=== PATIENT | female | born 1940 | race Caucasian/White ===

== ENCOUNTER 2016-12-03 07:40 | Day surgery (SDC) | payer MEDICARE, BC ==
[~2016-12-03 07:40] MED LIST: Buffered Lidocaine 0.9% SYRIN* 5 ML/SYR SYRINGE INTRADERM ONE; Famotidine IV* 10 MG/ML 2 ML (20 mg) IV ONE; Morphine INJ* 2 MG/ML 1 ML SYRINGE IV PRN; PROCHLORPERAZINE INJ 5 MG/ML 2 ML VIAL IV PRN; fentaNYL* 50 MCG/ML 2 ML VIAL (100 MCG VIAL) IV PRN; oxyCODONE/Acetamin 5/325 MG* TAB PO PRN
[2016-12-03] MEDS ORDERED: Famotidine IV* 10 MG/ML 2 ML (20 mg) ONE (07:57)
[2016-12-03] MEDS ORDERED: ceFAZolin 2 GM PREMIX(*) 2 GM/50 ML BAG IVPB ONE (07:57)
[2016-12-03] MEDS ORDERED: Buffered Lidocaine 0.9% SYRIN* 5 ML/SYR SYRINGE ONE (07:57)
[2016-12-03] MEDS ORDERED: KETAMINE HCL* 50 MG/ML 10 ML VIAL ONE (08:09)
[2016-12-03] MEDS ORDERED: Midazolam* 1 MG/ML 5 ML VIAL (5 MG) ONE (08:09)
[2016-12-03] MEDS ORDERED: fentaNYL* 50 MCG/ML 2 ML VIAL (100 MCG VIAL) ONE (08:09)
[2016-12-03] MEDS ORDERED: Bupivacaine 0.25% SDV* 30 ML ONE (09:15)
[2016-12-03 11:30] VITALS: BP 152/82
[2016-12-03] MEDS ORDERED: Dexamethasone IV* 4 MG/ML 1 ML (4 MG) ONE (12:02)
[2016-12-03] MEDS ORDERED: Ondansetron INJ* 2 MG/ML VIAL ONE (12:02)
[2016-12-03] MEDS ORDERED: Lidocaine 2% PF * 5 ML VIAL ONE (12:02)
[2016-12-03] MEDS ORDERED: Propofol* 10 MG/ML 20 ML BTL IV PUSH ONE (12:02)
--- NOTE | 2016-12-04 02:10 | OP ---
DATE OF OPERATION: 12/03/16 - [facility] DATE OF : 42 SURGEON: Abhishek Can MD ADVERTISING SALES ASSISTANT: JEB Renteria. An assistant media planner was needed for the entirety of the case to aid in retraction. ANESTHESIOLOGIST: Dr. Shen. ANESTHESIA: Local MAC. PRE-OP DIAGNOSES: 1. Right dorsal hand very large rheumatoid masses. 2. Right thumb metacarpophalangeal joint synovitis. 3. Extensive deformities, right hand, due to rheumatoid arthritis. POST-OP DIAGNOSES: 1. Right dorsal hand very large rheumatoid masses. 2. Right thumb metacarpophalangeal joint synovitis. 3. Extensive deformities, right hand, due to rheumatoid arthritis. OPERATIVE PROCEDURE: 1. Right hand excision extensor tendon tenosynovitis and 3rd and 4th metacarpophalangeal joint synovitis with extensor tendon realignment. 2. Excision thumb metacarpophalangeal joint synovitis. INDICATIONS: Ms. Mg is a 75-year-old female who was sent over to me by her coil machine supervisor to assist in the treatment of her disease. She has been medically controlled on Xeljanz and methotrexate. She has had history of nodules that is enlarged and gotten smaller. She has had enlarging dorsal right hand masses since last May, seven months ago. These have failed to respond to medical treatment and so her coil machine supervisor sent her over to see me. She also has extensive synovitis in the thumb MP joint. 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 There is some discomfort associated with masses. They are also very large and very noticeable. I had talked to her about surgical treatment options for her rheumatoid arthritis. Certainly, I think she would be a candidate for MP joint replacements and potentially a thumb MP joint fusion. She says that the hand is functioning well and she does not want to pursue any reconstructive surgery; however, she does want to have to see if we can get rid of some of the synovitis as it is quite prominent. I had gotten some preoperative medical recommendations from her coil machine supervisor and then we elected to proceed with surgery. She understood there is a risk that she could have worsening of extensor tendon subluxation and the function of the hand after surgery. ESTIMATED BLOOD LOSS: 5 mL. COMPLICATIONS: None. FINDINGS: Abundant synovitis protruding from the third and fourth MP joint. There is also extensive synovitis in the thumb MP joint. DESCRIPTION OF PROCEDURE: Viviane was seen in the preoperative holding area. The correct side, site, and procedure were confirmed. We came back to the operating room where she had some sedating medicine and then I infiltrated 8 mL of 0.25% plain Marcaine into the operative area. We then prepped and draped the arm in the usual fashion. We then had a formal time-out. The arm was exsanguinated with the Esmarch and the tourniquet inflated to 250 mmHg. I began by making a curvilinear transverse incision over the masses, over the dorsal aspect of the MP joints. Dissection was carried down and full thickness flaps were raised off of the synovitis. The care was taken to preserve the traversing sensory nerves as well as veins. Ultimately, I developed a correct plane between the extensor tendons and the synovitis. The margins of the synovitis were then freed up. I began more ulnarly and was able to free up the margins of the very large amount of synovium. The extensor tendons were preserved as was the extensor yu dorsally over the MP joint. The synovitis was excised cleanly off of the MP joint. The rongeur was used to clean up any remaining disease. This was then handed off as a specimen. I then performed a similar excision of the synovitis off of the third MP joint taking care to preserve the tendon. The tendon was actually quite attenuated over the synovitis and really adherent to it. Great care was taken to free it up and preserve the tendon going out to the middle finger. I excised the synovitis off the MP joint and again used the rongeur to clean up any remaining synovitis. The joint surfaces were obviously quite diseased. I irrigated out the wound. I then took some 5-0 Prolene suture and I imbricated the radial sagittal band first on the fourth and then on the third finger. This was done in [id number] fashion to close down the redundant and attenuated tissue of the radial sagittal band. Once I had the extensor tendons nicely positioned dorsally over the MP joints, I took the fingers to a flexion- extension motion and the tendon stayed centered over the dorsum of the joints. I therefore irrigated out the wound and the skin was closed with 4-0 nylon suture. I then turned my attention to the dorsum of the thumb MP joint where a longitudinal incision was made. The EPL tendon was identified. I went ahead and split the tendon over the MP joint. I encountered abundant synovitis. This was all excised with the scissors and then with the rongeur. Again, there was significant degenerative disease present. I went ahead and irrigated out the wound. I used 5- 0 Prolene to close down the extensor mechanism. The wound was then irrigated and the skin was closed with 4-0 nylon suture. I went ahead and placed a little bit more Marcaine in the operative area. The wounds were dressed with Xeroform, 4x4s, sterile Webril, and then a volar plaster splint was placed holding all the MP joint in extension. Tourniquet was deflated. Fingers pinked up immediately. She was then taken to recovery room in stable condition. [id number]/[facility] #: [id number] HA
== END 2016-12-03 11:45 | disposition home or self-care (01) ==
LOC: OREAST 07:40
PROVIDERS: ATTEND Orthopaedic Surgery Hand Surgery
DX: M06.341 Rheumatoid nodule, right hand (principal); M06.841 Other specified rheumatoid arthritis, right hand; I10 Essential (primary) hypertension; F17.200 Nicotine dependence, unspecified, uncomplicated
CPT/HCPCS: 88305; J0690; J1100; J2250; J2405; J2704; J3010

== ENCOUNTER 2017-02-08 10:26 | Day surgery (SDC) | payer MEDICARE, BC ==
[~2017-02-08 10:26] MED LIST changes: -Famotidine IV* 10 MG/ML 2 ML (20 mg) IV ONE; -Morphine INJ* 2 MG/ML 1 ML SYRINGE IV PRN; -PROCHLORPERAZINE INJ 5 MG/ML 2 ML VIAL IV PRN; -fentaNYL* 50 MCG/ML 2 ML VIAL (100 MCG VIAL) IV PRN; -oxyCODONE/Acetamin 5/325 MG* TAB PO PRN
[2017-02-08] MEDS ORDERED: ceFAZolin 2 GM PREMIX (*) 50 ML BAG (BBraun bag) IVPB ONE (10:50)
[2017-02-08] MEDS ORDERED: Buffered Lidocaine 0.9% SYRIN* 5 ML/SYR SYRINGE ONE (10:50)
[2017-02-08] MEDS ORDERED: Lidocaine 1% INJ* 10 MG/ML 30 ML SDV ONE (11:16)
[2017-02-08] MEDS ORDERED: Bupivacaine 0.25% SDV* 30 ML ONE (11:16)
[2017-02-08] MEDS ORDERED: Dexamethasone IV* 4 MG/ML 1 ML (4 MG) ONE (11:16)
[2017-02-08] MEDS ORDERED: Midazolam* 1 MG/ML 2 ML VIAL (2 MG) ONE (12:07)
[2017-02-08] MEDS ORDERED: fentaNYL* 50 MCG/ML 2 ML VIAL (100 MCG VIAL) ONE (12:07)
[2017-02-08] MEDS ORDERED: Propofol* 10 MG/ML 20 ML BTL IV PUSH ONE (12:52)
[2017-02-08 14:50] VITALS: BP 137/76
--- NOTE | 2017-02-08 15:00 | RAD ---
HISTORY: Status post metatarsal resection COMPARISONS: None relevant available at the time of dictation VIEWS: 2, Frontal and lateral views of the left foot FINDINGS: BONE DENSITY: There is diffuse osteopenia. BONES: The patient is status post resection of the distal second metatarsal. A percutaneous fixation wires noted of the distal second ray. . JOINTS: There is osteoarthritis of the first, third, fourth, and fifth MTP joints ALIGNMENT: There is no dislocation. SOFT TISSUES: There is post surgical change to the soft tissues OTHER FINDINGS: None. IMPRESSION: 1. OSTEOPENIA. 2. POSTSURGICAL CHANGE. 3. OSTEOARTHRITIS
--- NOTE | 2017-02-08 15:30 | RAD ---
CPT II Codes: 6045F INDICATION: Left second metatarsal resection TECHNIQUE: Intraoperative fluoroscopy was provided during left second toe metatarsal arthrodesis. FINDINGS: 7 spot films depict multiple images of the distally resected second metatarsal with an intramedullary pain spanning the medullary cavity of the remaining second metatarsal and the visualized proximal phalanx. Fluoroscopy time: 6.9 seconds IMPRESSION: As above.
--- NOTE | 2017-02-09 07:21 | OP ---
DATE OF OPERATION: 02/08/17 [facility] DATE OF : 42 SURGEON: Lg Garcia DPM ANESTHESIOLOGIST: Harinder Lopez MD ANESTHESIA: MAC local. PRE-OP DIAGNOSES: Right second metatarsophalangeal joint rheumatoid arthritis and left second toe hammertoe. POST-OP DIAGNOSES: Right second metatarsophalangeal joint rheumatoid arthritis and left second toe hammertoe. OPERATIVE PROCEDURE: Left second metatarsal head resection and left second digit arthrodesis. ESTIMATED BLOOD LOSS: Less than 10 cc. IV FLUIDS: LR 1000 cc. DRAINS: None. SPECIMENS: Head of the left second metatarsal, base of the left middle phalanx second toe and head of the proximal phalanx, left second toe. DESCRIPTION OF PROCEDURE: The patient was taken to the operating room and was placed in the supine position. Time-out was called and OR team agreed. The left foot was then blocked with 5 cc of 1% lidocaine plain in a Cabello block fashion at the base of the second metatarsal. The foot was then prepped and draped in a sterile manner. The left foot was then exsanguinated with Esmarch bandage and the cuff was then inflated to 250 mmHg. Attention was then paid to the left second metatarsophalangeal joint in the left second toe. There appeared to be a dorsal dislocation of the joint at the level of the second MPJ. The second toe is dorsally displaced as well as medially and is overlapping with the hallux. I made an incision over the joint to the toe, which was followed by sharp and blunt dissection from the skin, dermis, subcutaneous tissue and down to deep fascia and capsule. Once I was able to identify the second metatarso-phalangeal joint, I incised the capsule, cut to the joint, resected the second metatarsal head and was able to get some correction. The second set correction was performed after following removal of the head of the proximal phalanx and the base of the middle phalanx. I then retrograded the K-wire. Once I was able to get the correction with the toe in a straight manner no longer overlapping the hallux, the procedure was deemed completed. The wound was irrigated with sterile normal saline. The wound was then closed in a layered anatomical fashion. I then proceeded to inspect the reduction with fluoroscopy. This completed the procedure. The site was then injected with 5 cc of Marcaine plain as well as 8 mg of dexamethasone phosphate. The K-wire was then tucked safely underneath the dressing. The patient tolerated the procedure and anesthesia well and was taken to Recovery in stable condition. [id number]/[facility] #: [id number] MTDD
== END 2017-02-08 14:55 | disposition home or self-care (01) ==
LOC: OR 10:26
PROVIDERS: ATTEND Podiatrist
DX: M06.872 Other specified rheumatoid arthritis, left ankle and foot (principal); M20.42 Other hammer toe(s) (acquired), left foot; I10 Essential (primary) hypertension; F17.210 Nicotine dependence, cigarettes, uncomplicated
CPT/HCPCS: 76000; C1776; J0690; J1100; J2001; J2250; J2704; J3010

== ENCOUNTER 2019-01-26 08:09 | Day surgery (SDC) | payer MEDICARE, OTHER ==
[~2019-01-26 08:09] MED LIST changes: +Acetaminophen TAB* 325 MG PO PRN; -Buffered Lidocaine 0.9% SYRIN* 5 ML/SYR SYRINGE INTRADERM ONE
[2019-01-26] MEDS ORDERED: Neomycin/Polymy/Dex OPHTH.OIN* 3.5 GM ONE (08:15)
[2019-01-26] MEDS ORDERED: Lidocaine 1% MPF ** 5 ML VIAL ONE (08:15)
[2019-01-26] MEDS ORDERED: acetaZOLAMIDE TAB* 250 MG ONE (08:15)
[2019-01-26] MEDS ORDERED: Cyclopentolate 1% OPTH.SOL* 2 ML BTL ONE (08:15)
[2019-01-26] MEDS ORDERED: Tropicamide 1% OPTH.SOL* BTL ONE (08:15)
[2019-01-26] MEDS ORDERED: Povidone Iodine 5% OPTH* 30 ML BTL ONE (08:15)
[2019-01-26] MEDS ORDERED: Tetracaine 0.5% OPTH.SOL 4 ML* 1 DROP BTL ONE (08:15)
[2019-01-26] MEDS ORDERED: Ketorolac 0.5% OPHTH (NF) 0.5 % 5 ML BTL ONE (08:15)
[2019-01-26] MEDS ORDERED: Phenylephrine OPHTH SOL 2.5%* 2 ML ONE (08:15)
[2019-01-26] MEDS ORDERED: Midazolam* 1 MG/ML 2 ML VIAL (2 MG) ONE ×2 (09:31→09:42)
[2019-01-26 10:35] VITALS: BP 116/64
--- NOTE | 2019-01-26 11:34 | OP ---
DATE OF OPERATION: 01/26/19 - [facility] DATE OF : 42 SURGEON: Linus Sarkar MD ANESTHESIA: Monitored anesthesia care. PREOPERATIVE DIAGNOSIS: Cataract, right eye. POSTOPERATIVE DIAGNOSIS: Cataract, right eye. OPERATIVE PROCEDURE: Extracapsular cataract extraction of the right eye with intraocular lens implant. IMPLANT: SN60WF 20.0 diopter lens to the right eye. COMPLICATIONS: None. DESCRIPTION OF PROCEDURE: The patient was given phenylephrine 2.5% and cyclopentolate 1% eye drops to the operative eye in the preoperative area. The patient was taken to the operating room where a time-out was taken to identify the correct patient, site, and side of surgery. The patient's right eye was prepped and draped in the usual sterile fashion with 5% Betadine. A second time- out was taken to verify the correct patient, side, and site of surgery, as well as the correct lens implant. A lid speculum was placed to the right eye. A 1mm paracentesis blade was used to make a clear corneal incision. Preservative-free 1% lidocaine was injected into the anterior chamber. DisCoVisc was then injected into the anterior chamber. A 2.75 mm keratome blade was used to make a triplanar incision. A cystotome initiated a capsulorrhexis, which was completed with Utrata forceps in a continuous and curvilinear manner. Hydrodissection of the lens was performed with BSS on a cannula. The lens could be spun in a capsular bag. The phacoemulsification handpiece was used with a divide-and- conquer technique to remove the nucleus. The I/A handpiece then removed the residual cortical lens material. DisCoVisc was injected to inflate the capsular bag. The planned SN60WF 20.0 diopter lens was injected into the capsular bag. The residual DisCoVisc was removed from the eye with the I/A handpiece. The corneal incisions were hydrated and no leaks occurred at physiologic pressure around 20 mmHg per palpation. The lid speculum was removed and drapes were removed. Maxitrol ointment was placed to the surface of the operative eye. An adhesive patch and shield was then placed on the operative eye. The patient was taken to the postoperative area in stable condition. [id number]/[facility] #: [id number] [facility]
== END 2019-01-26 10:22 | disposition home or self-care (01) ==
LOC: OREAST 08:09
PROVIDERS: ATTEND Student in an Organized Health Care Education/Training Program
DX: H25.11 Age-related nuclear cataract, right eye (principal); H35.3212 Exudative age-related macular degeneration, right eye, with inactive choroidal neovascularization; I10 Essential (primary) hypertension; M06.9 Rheumatoid arthritis, unspecified; E78.00 Pure hypercholesterolemia, unspecified; F17.210 Nicotine dependence, cigarettes, uncomplicated
CPT/HCPCS: A9270-GY; J2250; V2632

== ENCOUNTER 2019-02-02 10:30 | Day surgery (SDC) | payer MEDICARE, OTHER ==
[2019-02-02 10:55] VITALS: BP 157/58
[2019-02-02] MEDS ORDERED: Midazolam* 1 MG/ML 2 ML VIAL (2 MG) ONE ×2 (12:19→12:20)
--- NOTE | 2019-02-02 13:14 | OP ---
DATE OF OPERATION: 02/02/19 [facility] DATE OF : 42 SURGEON: Linus Sarkar MD. ANESTHESIA: Monitored anesthesia care. PRE-OP DIAGNOSIS: Cataract, left eye. POST-OP DIAGNOSIS: Cataract, left eye. OPERATIVE PROCEDURE: Extracapsular cataract extraction of the left eye with intraocular lens implant. IMPLANT: SN60WF 18.0 diopter lens to the left eye. COMPLICATIONS: None. DESCRIPTION OF PROCEDURE: The patient was given phenylephrine 2.5% and cyclopentolate 1% eye drops to the operative eye in the preoperative area. The patient was taken to the operating room where a time-out was taken to identify the correct patient, site, and side of surgery. The patient's left eye was prepped and draped in the usual sterile fashion with 5% Betadine. A second time -out was taken to verify the correct patient, site, and side of surgery, and correct lens implant. A lid speculum was placed to the left eye. A 1-mm paracentesis blade was used to make a clear corneal incision in the inferotemporal position. Preservative-free 1% lidocaine was injected into the anterior chamber. A 2.75-mm keratome blade was used to make a triplanar incision at the superotemporal position. A cystotome initiated a capsulorrhexis , which was completed with Utrata forceps in a continuous and curvilinear manner. Hydrodissection of the lens was performed with BSS on a cannula. The lens could be spun in the capsular bag. The phacoemulsification handpiece was used with a [id number] technique to remove the nucleus. The I/A handpiece then removed the residual cortical lens material. Provisc was then injected to inflate the capsular bag. The ORA system was then used to confirm the correct IOL power. The planned SN60WF 18.0 diopter lens was then injected into the capsular bag. The residual DisCoVisc was removed from the eye with the I/A handpiece. The corneal incisions were hydrated and no leaks occurred at physiologic pressure around 20 mmHg per palpation. The lid speculum was removed and drapes were removed. Maxitrol ointment was placed on the surface of the operative eye. An adhesive patch and shield were then placed on the operative eye. The patient was taken to the postoperative area in stable condition. [id number]/[facility] #: [id number] MTDD
[2019-02-02] MEDS ORDERED: Tropicamide 1% OPTH.SOL* BTL ONE (13:35)
[2019-02-02] MEDS ORDERED: Neomycin/Polymy/Dex OPHTH.OIN* 3.5 GM ONE (13:35)
[2019-02-02] MEDS ORDERED: Cyclopentolate 1% OPTH.SOL* 2 ML BTL ONE (13:35)
[2019-02-02] MEDS ORDERED: Ketorolac 0.5% OPHTH (NF) 0.5 % 5 ML BTL ONE (13:35)
[2019-02-02] MEDS ORDERED: Phenylephrine OPHTH SOL 2.5%* 2 ML ONE (13:35)
[2019-02-02] MEDS ORDERED: Lidocaine 1% MPF ** 5 ML VIAL ONE (13:35)
[2019-02-02] MEDS ORDERED: acetaZOLAMIDE TAB* 250 MG ONE (13:35)
[2019-02-02] MEDS ORDERED: Povidone Iodine 5% OPTH* 30 ML BTL ONE (13:35)
[2019-02-02] MEDS ORDERED: Tetracaine 0.5% OPTH.SOL 4 ML* 1 DROP BTL ONE (13:35)
== END 2019-02-02 13:05 | disposition home or self-care (01) ==
LOC: OREAST 10:30
PROVIDERS: ATTEND Student in an Organized Health Care Education/Training Program
DX: H25.812 Combined forms of age-related cataract, left eye (principal); H35.3221 Exudative age-related macular degeneration, left eye, with active choroidal neovascularization; H35.3212 Exudative age-related macular degeneration, right eye, with inactive choroidal neovascularization; I10 Essential (primary) hypertension; M06.9 Rheumatoid arthritis, unspecified; E78.00 Pure hypercholesterolemia, unspecified; F17.210 Nicotine dependence, cigarettes, uncomplicated
CPT/HCPCS: A9270-GY; J2250; V2632